=== PATIENT | male | born 1970 | race Caucasian/White ===

== ENCOUNTER 2016-09-08 19:09 | Emergency (ER) | payer SELFPAY ==
[~2016-09-08] VITALS: Ht 167.6 cm; Wt 70.0 kg
[2016-09-08 19:10] VITALS: BP 152/91; PULSE 80; RESP 16; TEMP 98.9; O2SAT 98; O2SAT 99
[2016-09-08] MEDS ORDERED: SODIUM CHLOR 0.9% 1000 ML INJ 1,000 ML IV SCH (19:22)
--- NOTE | 2016-09-08 19:28 | PD ---
HPI Chief Complaint: memory loss Time Seen by Provider: 19:26 Travel History International Travel<30 days: No Contact w/Intl Traveler<30days: No History of Present Illness HPI Patient comes in by EMS for altered mental status. Patient states last thing he remembers is being in [place] approximately 2 or 3 days ago. Patient is uncertain as to how he ended up in [facility]. He states has a burning sensation in his head but denies any other complaints. Denies any chest pain, shortness of breath, nausea, vomiting, abdominal pain, numbness or tingling anywhere, loss or change in bowel or bladder. PFS Past Medical History Medical History: Denies Significant Hx Social History Alcohol Use: No Tobacco Use: No Substance Use: No Allergies-Medications (Allergen,Severity, Reaction): Coded Allergies: No Known Allergies (Unverified , 09/08/16) Reported Meds & Prescriptions Reported Meds & Active Scripts Active No Active Prescriptions or Reported Medications Review of Systems Except as stated in HPI: all other systems reviewed are Neg Physical Exam Narrative GENERAL: Well-developed, overly nourished, in no acute distress, and non-ill appearing. SKIN: Warm and dry. HEAD: Atraumatic. Normocephalic. EYES: Pupils equal and round. EOMI. No scleral icterus. No injection or drainage. ENT: No nasal bleeding or discharge. Mucous membranes pink and moist. NECK: Trachea midline. Supple. No nuclear rigidity. CARDIOVASCULAR: Regular rate and rhythm. No murmur appreciated. RESPIRATORY: No accessory muscle use. No respiratory distress. Clear to auscultation. Breath sounds equal bilaterally. GASTROINTESTINAL: Abdomen soft, non-tender, nondistended. Hepatic and splenic margins not palpable. Normal bowel sounds 4. No pulsatile mass. MUSCULOSKELETAL: No obvious deformities. No clubbing. No cyanosis. No edema. Full range of motion. NEUROLOGICAL: Awake and alert. No obvious cranial nerve deficits. Motor grossly within normal limits. Normal speech. PSYCHIATRIC: Appropriate mood and affect; insight and judgment normal. Data Data Last Documented VS Orders Electrocardiogram (09/08/16 19:22) Alcohol (Ethanol) (09/08/16 19:22) Ammonia (09/08/16 19:22) Complete Blood Count With Diff (09/08/16 19:22) Comprehensive Metabolic Panel (09/08/16 19:22) Creatine Kinase (Cpk) (09/08/16 19:22) Drug Screen, Random Urine (09/08/16 19:22) Prothrombin Time / Inr (Pt) (09/08/16 19:22) Act Partial Throm Time (Ptt) (09/08/16 19:22) Troponin I (09/08/16 19:22) Thyroid Stimulating Hormone (09/08/16 19:22) Lactic Acid Sepsis Protocol (09/08/16 19:22) Urinalysis - C+S If Indicated (09/08/16 19:22) Chest, Single Ap (09/08/16 19:22) Ct Brain W/O Iv Contrast(Rout) (09/08/16 19:22) Blood Glucose (09/08/16 19:22) Ecg Monitoring (09/08/16 19:22) Iv Access Insert/Monitor (09/08/16 19:22) Oximetry (09/08/16 19:22) Sodium Chloride 0.9% Flush (Ns Flush) (09/08/16 19:30) Sodium Chlor 0.9% 1000 Ml Inj (Ns 1000 M (09/08/16 19:22) CKMB (09/08/16 19:45) CKMB% (09/08/16 19:45) Psych Screen (09/08/16 21:36) Labs MDM Medical Decision Making Medical Screen Exam Complete: Yes Emergency Medical Condition: Yes Interpretation(s) EKG reviewed by Dr. Florentino shows sinus rhythm with ventricular is 71. No STEMI and no acute changes. Differential Diagnosis Pneumonia, intracranial hemorrhage, dehydration, rhabdomyolysis, electrolyte abnormality, acute coronary syndrome, UTI, acute psychosis, alcohol intoxication , drug intoxication, other Narrative Course Patient reports improvement status post receiving IV fluid, however is uncertain as how he ended up in [facility]. Patient was seen and examined. Labs were obtained and reviewed. Patient medically cleared for further treatment and evaluation by psych. Final disposition per psych. Discussed patient Dr. Florentino, who is in agreement with plan of care and disposition. RN is trying to contact family. Diagnosis Primary Impression: Amnesia Scripts No Active Prescriptions or Reported Meds Condition: Stable Cristofer Pedro Sep 08, 2016 19:28 Mean Corpuscular Hemoglobin 34.8 % Concent Red Cell Distribution Width 12.8 % Platelet Count 250 TH/MM3 Mean Platelet Volume 7.4 FL Neutrophils (%) (Auto) 66.1 % Lymphocytes (%) (Auto) 24.5 % Monocytes (%) (Auto) 8.5 % Eosinophils (%) (Auto) 0.6 % Basophils (%) (Auto) 0.3 % Neutrophils # (Auto) 7.3 TH/MM3 Lymphocytes # (Auto) 2.7 TH/MM3 Monocytes # (Auto) 0.9 TH/MM3 Eosinophils # (Auto) 0.1 TH/MM3 Basophils # (Auto) 0.0 TH/MM3 CBC Comment DIFF FINAL Differential Comment Prothrombin Time 11.3 SEC Prothromb Time International 1.0 RATIO Ratio Activated Partial 23.0 SEC Thromboplast Time Sodium Level 140 MEQ/L Potassium Level 4.1 MEQ/L Chloride Level 103 MEQ/L Carbon Dioxide Level 24.3 MEQ/L Anion Gap 13 MEQ/L Blood Urea Nitrogen 18 MG/DL Creatinine 1.04 MG/DL Estimat Glomerular Filtration 77 ML/MIN Rate Random Glucose 73 MG/DL Lactic Acid Level 2.1 mmol/L Calcium Level 9.1 MG/DL Total Bilirubin 0.9 MG/DL Aspartate Amino Transf 34 U/L (AST/SGOT) Alanine Aminotransferase 56 U/L (ALT/SGPT) Alkaline Phosphatase 72 U/L Ammonia LESS THAN 10 MCMOL/L Total Creatine Kinase 430 U/L Creatine Kinase MB 3.0 NG/ML Creatine Kinase MB % 0.7 % Troponin I 0.05 NG/ML Total Protein 8.1 GM/DL Albumin 4.4 GM/DL Thyroid Stimulating Hormone 2.190 uIU/ML 3rd Gen Ethyl Alcohol Level LESS THAN 3 MG/DL Urine Color YELLOW Urine Turbidity HAZY Urine pH 5.5 Urine Specific [place] 1.024 Urine Protein TRACE mg/dL Urine Glucose (UA) NEG mg/dL Urine Ketones 150 mg/dL Urine Occult Blood NEG Urine Nitrite NEG Urine Bilirubin NEG Urine Urobilinogen LESS THAN 2.0 MG/DL Urine Leukocyte Esterase NEG Urine RBC 3 /hpf Urine WBC 1 /hpf Urine Squamous Epithelial <1 /hpf Cells Urine Bacteria /hpf Urine Mucus MANY /lpf Microscopic Urinalysis Comment CATH-CULT NOT IND Urine Opiates Screen NEG Urine Barbiturates Screen NEG Urine Amphetamines Screen NEG Urine Benzodiazepines Screen NEG Urine Cocaine Screen NEG Urine Cannabinoids Screen NEG MDM Medical Decision Making Medical Screen Exam Complete: Yes Emergency Medical Condition: Yes Interpretation(s) EKG reviewed by Dr. Florentino shows sinus rhythm with ventricular is 71. No STEMI and no acute changes. Differential Diagnosis Pneumonia, intracranial hemorrhage, dehydration, rhabdomyolysis, electrolyte abnormality, acute coronary syndrome, UTI, acute psychosis, alcohol intoxication , drug intoxication, other Narrative Course Patient reports improvement status post receiving IV fluid, however is uncertain as how he ended up in [facility]. Patient was seen and examined. Labs were obtained and reviewed. Patient medically cleared for further treatment and evaluation by psych. Final disposition per psych. Discussed patient Dr. Florentino, who is in agreement with plan of care and disposition. RN is trying to contact family. Diagnosis Primary Impression: Amnesia Scripts No Active Prescriptions or Reported Meds Condition: Stable Cristofer Pedro Sep 08, 2016 19:28
[2016-09-08] MEDS ORDERED: SODIUM CHLORIDE 0.9% FLUSH 5 ML FLUSH IVF PRN (19:30)
--- NOTE | 2016-09-08 19:59 | RADRPT ---
EXAM DATE/TIME: 09/08/2016 19:45 [facility] COMPARISON: No previous studies available for comparison. INDICATIONS : Altered mental status. RADIATION DOSE: 56.35 CTDIvol (mGy) MEDICAL HISTORY : None SURGICAL HISTORY : None. ENCOUNTER: Initial ACUITY: 1 day PAIN SCALE: 0/10 LOCATION: cranial TECHNIQUE: Multiple contiguous axial images were obtained of the head. Using automated exposure control and adj ustment of the mA and/or kV according to patient size, radiation dose was kept as low as reasonably a chievable to obtain optimal diagnostic quality images. FINDINGS: CEREBRUM: The ventricles are normal for age. No evidence of midline shift, mass lesion, hemorrhage or acute in farction. No extra-axial fluid collections are seen. Basal ganglia calcifications are seen bilateral ly. These are symmetrical. POSTERIOR FOSSA: The cerebellum and brainstem are intact. The 4th ventricle is midline. The cerebellopontine angle i s unremarkable. EXTRACRANIAL: The visualized portion of the orbits is intact. SKULL: The calvaria is intact. No evidence of skull fracture. CONCLUSION: No acute disease. Bandar Perry Jr., MD on September 08, 2016 at 19:57 Board Certified Radiologist. This report was verified electronically.
--- NOTE | 2016-09-08 20:49 | RADRPT ---
EXAM DATE/TIME: 09/08/2016 19:53 [facility] COMPARISON: No previous studies available for comparison. INDICATIONS : Short of breath. MEDICAL HISTORY : None. SURGICAL HISTORY : None. ENCOUNTER: Initial ACUITY: 1 day PAIN SCORE: Non-responsive. LOCATION: Bilateral chest FINDINGS: A single view of the chest demonstrates the lungs to be symmetrically aerated without evidence of mas s, infiltrate or effusion. The cardiomediastinal contours are unremarkable. Osseous structures are intact. CONCLUSION: Normal examination. Bandar Perry Jr., MD on September 08, 2016 at 20:47 Board Certified Radiologist. This report was verified electronically.
[2016-09-08 20:55] LABS: AUTOMATED NEUTROPHIL # 7.3 TH/MM3 (1.8-7.7); BASOPHIL % 0.3 % (0.0-2.0); EOSINOPHIL # 0.1 TH/MM3 (0-0.4); EOSINOPHIL % 0.6 % (0.0-4.0); HEMATOCRIT 43.2 % (39.0-51.0); HEMO FLAGS DIFF FINAL; LYMPH % 24.5 % (9.0-44.0); LYMPHOCYTE # 2.7 TH/MM3 (1.0-4.8); MEAN CELL VOLUME 82.7 FL (80.0-100.0); MEAN CORPUSCULAR HEMOGLOBIN 28.7 PG (27.0-34.0); MEAN CORPUSCULAR HGB CONC 34.8 % (32.0-36.0); MONO % 8.5 % (0.0-8.0); NEUT % 66.1 % (16.0-70.0); PLATELET COUNT 250 TH/MM3 (150-450); RED BLOOD COUNT 5.22 MIL/MM3 (4.50-5.90); RED CELL DISTRIBUTION WIDTH 12.8 % (11.6-17.2)
[2016-09-08 21:00] VITALS: BP 139/72; PULSE 89; RESP 18; O2SAT 98
[2016-09-08 21:05] LABS: PROTHROMBIN TIME - PATIENT 11.3 SEC (9.8-11.6)
[2016-09-08 21:14] LABS: ANION GAP 13 MEQ/L (5-15)
[2016-09-08 21:24] LABS: ALKALINE PHOSPHATASE 72 U/L (45-117); ALT (GPT) 56 U/L (12-78); AST (GOT) 34 U/L (15-37); BICARBONATE 24.3 MEQ/L (21.0-32.0); BLOOD UREA NITROGEN 18 MG/DL (7-18); CHLORIDE 103 MEQ/L (98-107); CREATINE KINASE 430 U/L (39-308); GLOMERULAR FILTRATION RATE 77 ML/MIN (>89); SODIUM (NA) 140 MEQ/L (136-145); TOTAL BILIRUBIN ADULT 0.9 MG/DL (0.2-1.0)
[2016-09-08 21:25] LABS: POTASSIUM 4.1 MEQ/L (3.5-5.1)
[2016-09-08 22:17] LABS: BLOOD, URINE NEG (NEG); GLUCOSE,URINE NEG (NEG); KETONE, URINE 150 mg/dL (NEG); MUCUS URINE MANY /lpf (OCC); NITRITE,URINE NEG (NEG); PH, URINE 5.5 (5.0-8.5); SQUAMOUS EPITHELIAL CELL URINE <1 /hpf (0-5); URINE COLOR YELLOW (YELLW/STRAW)
[2016-09-08 22:18] LABS: COMMENT (UR) CATH-CULT NOT IND; CULTURE IF INDICATED CATH CULTURE NOT IND
[2016-09-08 22:22] LABS: AMPHETAMINE, URINE NEG (NEG); BARBITURATES, URINE NEG (NEG); COCAINE, URINE NEG (NEG)
[2016-09-08 22:46] LABS: LACTIC ACID GHOST NOT REPORTABLE
[2016-09-09 01:00] VITALS: BP 124/66; PULSE 82; RESP 18; O2SAT 97
--- NOTE | 2016-09-09 05:40 | EKG ---
Date Performed: 09/08/2016 Time Performed: 19:31:04 PTAGE: 46 years EKG: Sinus rhythm NORMAL ECG NO PREVIOUS TRACING DOCTOR: Arnaldo Hicks Interpretating Date/Time 09/09/2016 05:40:15
== END 2016-09-09 01:30 | disposition home or self-care (01) ==
LOC: NEPE 19:09
DX: R41.3 Other amnesia (principal); R51 Headache
CPT/HCPCS: 70450; 71010; 80053; 80307; 80320; 81001; 82140; 82550; 82552; 83605; 84443; 84484; 85025; 85610; 85730; 93005; 96360; 96361; 99285; J7030